=== PATIENT | female | born 1980 | race Caucasian/White ===

== ENCOUNTER 2019-11-07 11:42 | Emergency (ER) | payer MEDICAID ==
[~2019-11-07] VITALS: Ht 165.1 cm; Wt 55.3 kg
[2019-11-07 11:56] VITALS: Ht 165.1 cm; Wt 55.3 kg
[2019-11-07 13:23] LABS: CALCIUM 8.3 mg/dL (8.5-10.1); CARBON DIOXIDE 28.2 mmol/L (21-32); CHLORIDE SERUM 107 mmol/L (98-107); CREATININE SERUM 0.6 mg/dL (0.6-1.0); GFR1 > 60 mL/min; GLUCOSE SERUM 99 mg/dL (74-106); POTASSIUM SERUM 3.8 mmol/L (3.5-5.1); SODIUM SERUM 141 mmol/L (136-145)
[2019-11-07 13:27] LABS: ALBUMIN 3.4 g/dL (3.4-5.0); ALKALINE PHOSPHATASE 50 U/L (46-116); ALT/SGPT 30 U/L (14-59); AST/SGOT 11 U/L (15-37); BASOPHIL % 0.3 % (0-2); LIPASE 149 IU/L (73-393); PLATELET COUNT 346 x10^3mcL (130-400); RED CELL DISTRIBUTION WIDTH 13.5 % (11.5-14.5); TOTAL PROTEIN, SERUM 6.8 g/dL (6.4-8.2)
[2019-11-07 15:33] VITALS: BP 128/78
== END 2019-11-07 15:33 | disposition home or self-care (01) ==
LOC: ED 11:42
PROVIDERS: Specialist
DX: N83.202 Unspecified ovarian cyst, left side (principal)
CPT/HCPCS: J1885; Q0092